=== PATIENT | male | born 1980 | race Two or more races ===

== ENCOUNTER 2020-01-12 14:51 | Emergency (ER) | payer OTHER ==
[~2020-01-12] VITALS: Ht 180.3 cm; Wt 79.5 kg
[2020-01-12 15:27] VITALS: BP 120/78
== END 2020-01-12 15:27 | disposition home or self-care (01) ==
LOC: EMS 14:52
DX: Z71.1 Person with feared health complaint in whom no diagnosis is made (principal); Y26.XXXA Exposure to smoke, fire and flames, undetermined intent, initial encounter; X02.8XXA Other exposure to controlled fire in building or structure, initial encounter; Y93.89 Activity, other specified; Y92.89 Other specified places as the place of occurrence of the external cause; Y99.0 Civilian activity done for income or pay